=== PATIENT | female | born 1985 | race Caucasian/White ===

== ENCOUNTER 2018-12-15 18:55 | Inpatient (IN) | payer BC, SELFPAY ==
[2018-12-15 19:29] VITALS: BMI 45.3
[2018-12-15] MEDS: 0.9% Normal Saline 100 ML IV.SOLN. INTRA-UTER (19:43)
--- NOTE | 2018-12-15 19:46 | PCM.HP.OB ---
History Date of Admission: 12/15/18 Final RENNY: 12/11/18 Final RENNY Source: US <20 weeks Gestational age: 40 Weeks and 4 Days History of this : This is a 32 year-old, @ 40 4/7 weeks gestation for induction of labor. Cervical ripening tonight for pitocin/AROM induction after. She denies VB/LOF. Good FM> Some irreg ctxs. H/o 4 previous SVDs, no complications largest 9lb 3 oz PMHX- significant for h/o depression , abnormal pap smears, hep C surg Hx significant for LEEP, laparascopic ovarian cystectomy, foot surgery, tonsillectomy, appendectomy Allergies etodolac Allergy (Verified 12/15/18 19:19) Other loss of vision Home Medications: Home Medications Vits [Prenatabs FA ] 1 tablet PO DAILY 02/16/17 Smoking Status: Current every day smoker Alcohol: None Number of Fetus(es): 1 Heart Tracing: normal baseline, moderate variability, + accels, no decels, category 1 TOCO Analysis: irreg ctxs History Past Pregnancies: Past Pregnancies Delivery Date Name GA/Weeks Outcome Route Weight Gender Labor Length Anesthesia Delivery Location Provider FOB Review of Systems Constitutional: Denies: Chills, Fever Eyes: Denies: Blurred vision Cardiovascular: Denies: Chest Pain Respiratory: Denies: Cough Gastrointestinal: Denies: Abdominal Pain Physical Exam General: Alert, Cooperative, No apparent distress Cardiovascular: Regular rate Lungs: Normal air movement Abdomen: Soft, Non-Distended, Gravid, Appropriate for Gestational Age Extremities:: Other - edema 1+ [employer]IP[employer]: Normal external genitalia Estimated gestational size: Appropriate for gestational size Presentation: Cephalic Cervix Dilation (cm): 1 - midpostion, medium consistency Station: -3 Effacement (%): 60 Assessment/Plan This is a 32 year-old, G 5P4 for cervical ripening for induction of labor due to approaching 41 weeks Barry, arom, pit as needed epidural or NO prn pain control EFW < 4500 gm clinically and pelvis clinically adequate to expect vaginal delivery Barry placed over stylette in the usual sterile fashion and bulb inflated to 30 cc w/ sterile saline. Patient and fetus tolerated well. Placement over internal os confirmed
[2018-12-15] MEDS: Lactated Ringers 1,000 ML 50 ML IV ×2 (19:50)
--- NOTE | 2018-12-15 19:51 | HP.PCM_ITS ---
History Date of Admission: 12/15/18 Final RENNY: 12/11/18 Final RENNY Source: US <20 weeks Gestational age: 40 Weeks and 4 Days History of this : This is a 32 year-old, @ 40 4/7 weeks gestation for induction of labor. Cervical ripening tonight for pitocin/AROM induction after. She denies VB/LOF. Good FM> Some irreg ctxs. H/o 4 previous SVDs, no complications largest 9lb 3 oz PMHX- significant for h/o depression , abnormal pap smears, hep C surg Hx significant for LEEP, laparascopic ovarian cystectomy, foot surgery, tonsillectomy, appendectomy Allergies etodolac Allergy (Verified 12/15/18 19:19) Other loss of vision Home Medications: Home Medications Vits [Prenatabs FA ] 1 tablet PO DAILY 02/16/17 Smoking Status: Current every day smoker Alcohol: None Number of Fetus(es): 1 Heart Tracing: normal baseline, moderate variability, + accels, no decels, category 1 TOCO Analysis: irreg ctxs History Past Pregnancies: Past Pregnancies Delivery Date Name GA/Weeks Outcome Route Weight Gender Labor Length Anesthesia Delivery Location Provider FOB Review of Systems Constitutional: Denies: Chills, Fever Eyes: Denies: Blurred vision Cardiovascular: Denies: Chest Pain Respiratory: Denies: Cough Gastrointestinal: Denies: Abdominal Pain Physical Exam General: Alert, Cooperative, No apparent distress Cardiovascular: Regular rate Lungs: Normal air movement Abdomen: Soft, Non-Distended, Gravid, Appropriate for Gestational Age Extremities:: Other - edema 1+ WARP PICKER: Normal external genitalia Estimated gestational size: Appropriate for gestational size Presentation: Cephalic Cervix Dilation (cm): 1 - midpostion, medium consistency Station: -3 Effacement (%): 60 Assessment/Plan This is a 32 year-old, G 5P4 for cervical ripening for induction of labor due to approaching 41 weeks Barry, arom, pit as needed epidural or NO prn pain control EFW < 4500 gm clinically and pelvis clinically adequate to expect vaginal de livery Barry placed over stylette in the usual sterile fashion and bulb inflated to 30 cc w/ sterile saline. Patient and fetus tolerated well. Placement over internal os confirmed
[2018-12-15 19:53] LABS: Hematocrit 35.8 % (37-47); Mean Corp Hgb Conc 33.5 g/gl (32-36); Mean Corpuscular Hgb 29.7 pg (27.0-32.0); Mean Corpuscular Volume 88.6 fL (81-99); Mean Platelet Vol. 10.6 fl (6.2-12.0); Platelet Count 226 K/mm3 (150-450); RBC Distribution Width CV 12.9 % (11.6-14.6); RBC Distribution Width SD 41.3 fl (35.1-43.9); Red Blood Count 4.04 M/mm3 (4.2-5.4); White Blood Count 9.9 K/mm3 (4.4-11.0)
[2018-12-15 19:54] LABS: Scan Indicated on CBC? Y/N NO
[2018-12-15 23:32] LABS: Amphetamine Urine VISTA NEGATIVE (<1000 ng/mL); Barbiturate Urine VISTA NEGATIVE (< 200 ng/mL); Benzodiazepine Urine VISTA NEGATIVE (< 200 ng/mL); Cocaine Urine VISTA NEGATIVE (< 300 ng/mL); Ecstacy Urine VISTA NEGATIVE (< 500 ng/mL); Methadone Urine VISTA NEGATIVE (< 300 ng/mL); PCP Urine VISTA NEGATIVE (< 25 ng/mL); THC Urine VISTA NEGATIVE (< 50 ng/mL); Vista UDS pH Range 6
[2018-12-16] MEDS: Oxytocin 30 units/NS 500 ml 30 UNITS/500 ML IV.SOLN IV (00:03)
[2018-12-16] MEDS: Lactated Ringers 1,000 ML 50 ML IV ×3 (02:06→09:52)
[2018-12-16] MEDS: fentaNYL-bupivacaine (epidural) 100 ML BAG EPIDURAL ×2 (03:46→09:53)
[2018-12-16] MEDS: Acetaminophen 325 MG Tablet PO (06:53)
[2018-12-16] MEDS: Amnioinfusion- 0.9% NS 1,000 ML IV.SOLN. INTRA-UTER (10:44)
[2018-12-16] MEDS: Oxytocin 30 units/NS 500 ml 30 UNITS/500 ML IV.SOLN 334 UNITS IV (11:37)
--- NOTE | 2018-12-16 11:47 | PCM.OB.VAG ---
Vaginal Delivery Maternal Presentation: Elective Induction Method of Induction: Pitocin, Barry Bulb, Amniotomy Medical Reason for Induction: - - 40 5/7 weeks Amniotic Membrane Rupture Type: Artificial Amniotic Fluid Description: Clear Final RENNY: 12/11/18 Final RENNY Source: US <20 weeks Gestational age: 40 Weeks and 5 Days Date of Procedure: 12/16/18 Pre-Operative Diagnosis: labor Post-Operative Diagnosis: same Surgery/ Procedure Performed: Spontaneous Vaginal Delivery Type of Anesthesia: Epidural Description of Procedure: A vigorous female infant was delivered RODY over a small first-degree perineal laceration. Tight nuchal cord was able to be reduced. The shoulders were delivered spontaneously without any traction or without significant maternal pushing efforts. At this point decision was made to deliver through the nuchal cord and the rest of the infant delivered and was supported. Once the was delivered the nuchal cord was reduced and the infant was placed on the maternal abdomen. The Pitocin infusion was initiated for active management of the third stage. The cord was clamped and cut after 1 minute. The was attended to by the waiting nursing staff. The placenta was delivered spontaneously and intact. The cervix and vagina were intact. The first-degree laceration was repaired with a single [id number] 3-0 Vicryl repeat suture. Sponge and needle counts were correct. A vaginal sweep was completed by me. Presentation: RODY Placental Delivery Description: Spontaneous Placenta Disposition: [facility] Cord Vessel Description: 3 Vessels Nuchal Cord Compression: Without compression Cord Entanglement: Around neck x 1, tight Drain: Barry to straight drain Estimated Blood Loss: 300 A gender: Female (1 minute): 8 (5 minute): 9 Episiotomy Description: None Laceration: 1st degree
--- NOTE | 2018-12-16 11:50 | OP.PCM_ITS ---
Vaginal Delivery Maternal Presentation: Elective Induction Method of Induction: Pitocin, Barry Bulb, Amniotomy Medical Reason for Induction: - - 40 5/7 weeks Amniotic Membrane Rupture Type: Artificial Amniotic Fluid Description: Clear Final RENNY: 12/11/18 Final RENNY Source: US <20 weeks Gestational age: 40 Weeks and 5 Days Date of Procedure: 12/16/18 Pre-Operative Diagnosis: labor Post-Operative Diagnosis: same Surgery/ Procedure Performed: Spontaneous Vaginal Delivery Type of Anesthesia: Epidural Description of Procedure: A vigorous female infant was delivered RODY over a small first-degree perineal laceration. Tight nuchal cord was able to be reduced. The shoulders were delivered spontaneously without any traction or without significant maternal pushing efforts. At this point decision was made to deliver through the nuchal cord and the rest of the infant delivered and was supported. Once the was delivered the nuchal cord was reduced and the infant was placed on the maternal abdomen. The Pitocin infusion was initiated for active management of the third stage. The cord was clamped and cut after 1 minute. The was attended to by the waiting nursing staff. The placenta was delivered s pontaneously and intact. The cervix and vagina were intact. The first-degree laceration was repaired with a single [id number] 3-0 Vicryl repeat suture. Sponge and needle counts were correct. A vaginal sweep was completed by me. Presentation: RODY Placental Delivery Description: Spontaneous Placenta Disposition: [facility] Cord Vessel Description: 3 Vessels Nuchal Cord Compression: Without compression Cord Entanglement: Around neck x 1, tight Drain: Barry to straight drain Estimated Blood Loss: 300 Infant A gender: Female (1 minute): 8 (5 minute): 9 Episiotomy Description: None Laceration: 1st degree
[2018-12-16] MEDS: Oxytocin 30 units/NS 500 ml 30 UNITS/500 ML IV.SOLN 167 UNITS IV (12:10)
[2018-12-16 15:00] VITALS: BP 92/47; PULSE 79; RESP 16; TEMP 36.4; O2SAT 96
[2018-12-16 19:45] VITALS: BP 140/84; PULSE 92; RESP 16; TEMP 36.3; O2SAT 95
[2018-12-16] MEDS: Acetaminophen 500 MG Tablet 1000 MG PO (19:49)
[2018-12-17 00:15] VITALS: BP 114/56; PULSE 74; RESP 16; TEMP 36.4
[2018-12-17 05:00] VITALS: BP 130/70; PULSE 74; RESP 16; TEMP 36.5
[2018-12-17 08:20] VITALS: BP 137/69; PULSE 83; RESP 16; TEMP 36.6; O2SAT 96
--- NOTE | 2018-12-17 08:29 | DCINST_ITS ---
Discharge Diet: No Restrictions Discharge Activity: Return to Normal Activity, May not drive while taking narcotic pain medications., May Shower May resume sexual activity in: 4-6 weeks Additional Activity Instructions:: Nothing in the vagina for 4-6 weeks. You may return to work/school in 6 weeks. Call your doctor if your incision/area has: Continuous Slow Oozing, Sudden Increased Bleeding, Increased Pain/ Swelling, Increased Redness, Foul Smelling Discharge Additional Instructions: If you experience any of the following, contact your healthcare provider. * Bleeding that soaks a pad every hour for 2 hours * Fever 100.4 or higher * Unrelieved incision or abdominal pain * Swelling, redness, discharge or bleeding from your incision or episiotomy site * Your incision begins to separate * Problems urinating (including inability to urinate or burning while urinating). * Visual changes * Severe headache * Flu-like symptoms * Pain or redness in one of both of your breasts * Pain, warmth, tenderness or swelling in your legs, especially the calf area * Frequent nausea and vomiting * Symptoms of depression or anxiety If you experience any of the following, call 911 or go to the nearest Emergency Room. * Chest pain * Problems breathing * Seizure activity * Partial or complete paralysis of a body part, slurred speech, weakness or drooping of the face, or a sudden inability to walk or hold your balance Allergies/Adverse Reactions: Allergies etodolac Allergy (Verified 12/15/18 19:19) Other loss of vision Medications to take at Discharge Vits [Prenatabs FA ] 1 tablet PO DAILY 02/16/17 Ibuprofen [Motrin] 600 mg PO Q6H PRN #60 tablet 12/17/18 The following prescriptions were given: Ibuprofen [Motrin] 600 mg PO Q6H PRN #60 tablet PRN Reason: Pain Please Follow Up With: Tram Soliman MD - [phone] When: Call to make an appointment with your doctor in 6 weeks. If you had elevated Blood Pressure or 4th degree laceration you will need to be seen in 2 weeks. Primary Care Physician: Care Physician,No Primary [Primary Care Provider] - Test Results: Test results from this visit will be discussed in further detail at your follow- up appointment, if applicable.
--- NOTE | 2018-12-17 08:29 | PCM.PN.OB ---
Subjective: Pain well controlled, average lochia. No new complaints today. Working on breast-feeding. - Physical Exam General: Alert, Cooperative, No apparent distress Vital Signs Temp Pulse Resp BP Pulse Ox 97.7 F L 74 16 130/70 H 95 12/17/18 05:00 12/17/18 05:00 12/17/18 05:00 12/17/18 05:00 12/16/18 19:45 Oxygen Delivery Method Room Air Weight: 102 kg Body Mass Index (BMI) 45.3 Intake and Output for Last 24 Hours 12/15/18 12/16/18 12/17/18 23:59 23:59 23:59 Intake Total 3336 / 3336 Output Total 2450 / 2450 Balance 886 / 886 Laboratory Tests Past 24 Hrs 12/16/18 13:15 Screen NEGATIVE Baby's Blood Type O POSITIVE Baby's FREDIS NEGATIVE Medical Necessity - Tobacco Use Smoking Status: Current every day smoker Assessment/Plan day #1 status post vaginal delivery. Infant is doing well. Routine care for patient and . Okay to discharge patient home to day if okay with pediatrics.
[2018-12-17] MEDS: Naproxen 250 MG Tablet PO (08:50)
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
[2018-12-17 12:05] VITALS: BP 140/77; PULSE 78; RESP 16; TEMP 36.3; O2SAT 95
[2018-12-17 14:10] VITALS: BP 108/61
== END 2018-12-17 14:15 | disposition home or self-care (01) | DRG 806 ==
PROVIDERS: Admitting Provider Obstetrics & Gynecology; Referring Provider Obstetrics & Gynecology; Visit Provider Obstetrics & Gynecology
DX: O69.81X0 Labor and delivery complicated by cord around neck, without compression, not applicable or unspecified (principal); O98.42 Viral hepatitis complicating childbirth; Z37.0 Single live birth; B19.20 Unspecified viral hepatitis C without hepatic coma; O70.0 First degree perineal laceration during delivery; O99.333 Smoking (tobacco) complicating pregnancy, third trimester; F17.200 Nicotine dependence, unspecified, uncomplicated; Z3A.40 40 weeks gestation of pregnancy
CPT/HCPCS: 59025; 59050; 80307; 85027; 85461; 86850; 86900; 90384; 99218; J7030; J7120; G0378; J2790